=== PATIENT | female | born 1980 | race Caucasian/White ===

== ENCOUNTER → 2017-01-20 | Outpatient (CLI) | payer BC | LOC: RAD 10:28 | DX: G43.709 Chronic migraine without aura, not intractable, without status migrainosus (principal) ==

== ENCOUNTER → 2018-04-14 | Outpatient (CLI) | payer BC ==
[2018-04-14 10:04] LABS: EOS # 0.2 (0.04-0.40); EOS % 1.8 % (1.0-5.0); HEMATOCRIT 37.1 % (37.0-47.0); HEMOGLOBIN 12.5 g/dL (12.5-16.0); LYMPH# 2.7 (1.50-4.00); MEAN CELL VOLUME 91 fl (78-100); MEAN CORPUSCULAR HEMOGLOBIN 31 pg (27-31); MEAN CORPUSCULAR HGB CONC 34 g/dL (33-37); MEAN PLATELET VOLUME 10.1 fl (7.4-10.4); MONO # 0.8 (0.20-0.80); NEU # 6.3 (1.40-6.50); PLATELET COUNT 258 K/mm3 (130-400); RED BLOOD COUNT 4.06 M/mm3 (4.10-5.30); RED CELL DISTRIBUTION WIDTH 13.1 % (11.5-14.5); WHITE BLOOD COUNT 10.1 K/mm3 (4.8-10.8)
[2018-04-14 10:22] LABS: ALBUMIN 4.7 g/dL (3.5-5.0); CALCIUM 9.1 mg/dL (8.4-10.2); POTASSIUM 4.3 mmol/L (3.6-5.0); TOTAL BILIRUBIN 0.7 mg/dL (0.2-1.3); TOTAL PROTEIN 7.9 g/dL (6.3-8.2)
== END ==
LOC: LAB 09:51
PROVIDERS: Physician Assistant
DX: E16.2 Hypoglycemia, unspecified (principal); N92.0 Excessive and frequent menstruation with regular cycle; J06.9 Acute upper respiratory infection, unspecified; Z86.69 Personal history of other diseases of the nervous system and sense organs

== ENCOUNTER → 2019-11-22 | Outpatient (CLI) | payer BC ==
[2019-11-22 08:55] LABS: EOS # 0.2 (0.04-0.40); EOS % 2.5 % (1.0-5.0); HEMOGLOBIN 12.3 g/dL (12.5-16.0); LYMPH# 3.9 (1.50-4.00); MEAN CELL VOLUME 92 fl (78-100); MEAN CORPUSCULAR HEMOGLOBIN 31 pg (27-31); MEAN CORPUSCULAR HGB CONC 33 g/dL (33-37); MEAN PLATELET VOLUME 10.7 fl (7.4-10.4); MONO # 0.6 (0.20-0.80); NEU # 3.3 (1.40-6.50); PLATELET COUNT 254 K/mm3 (130-400); RED BLOOD COUNT 4.01 M/mm3 (4.10-5.30); RED CELL DISTRIBUTION WIDTH 12.2 % (11.5-14.5); WHITE BLOOD COUNT 8.1 K/mm3 (4.8-10.8)
[2019-11-22 09:01] LABS: POTASSIUM 4.1 mmol/L (3.5-5.1)
[2019-11-22 09:03] LABS: CALCIUM 8.7 mg/dL (8.3-10.5)
[2019-11-22 09:04] LABS: TOTAL PROTEIN 7.5 g/dL (6.4-8.3)
[2019-11-22 09:06] LABS: TOTAL BILIRUBIN 0.5 mg/dL (0.2-1.2)
[2019-11-22 10:02] LABS: ERYTHROCYTE SEDIMENTATION RATE 8 mm/hr (0-20)
== END ==
LOC: LAB 08:14
PROVIDERS: Physician Assistant
DX: K50.90 Crohn's disease, unspecified, without complications (principal); R60.0 Localized edema; L65.9 Nonscarring hair loss, unspecified; J30.1 Allergic rhinitis due to pollen; R21 Rash and other nonspecific skin eruption

== ENCOUNTER → 2020-04-16 | Outpatient (CLI) | payer BC | LOC: LAB 07:29 | DX: N39.0 Urinary tract infection, site not specified (principal) ==

== ENCOUNTER → 2020-07-05 | Outpatient (CLI) | payer BC ==
[2020-07-05 08:42] LABS: HEMATOCRIT 35.6 % (37.0-47.0); HEMOGLOBIN 11.6 g/dL (12.5-16.0); MEAN PLATELET VOLUME 10.4 fl (7.4-10.4); RED BLOOD COUNT 3.81 M/mm3 (4.10-5.30); RED CELL DISTRIBUTION WIDTH 12.1 % (11.5-14.5); WHITE BLOOD COUNT 6.5 K/mm3 (4.8-10.8)
[2020-07-05 08:55] LABS: POTASSIUM 4.2 mmol/L (3.5-5.1)
[2020-07-05 08:56] LABS: ALBUMIN 3.8 g/dL (3.5-5.0)
[2020-07-05 08:57] LABS: CALCIUM 8.4 mg/dL (8.3-10.5)
[2020-07-05 09:00] LABS: TOTAL BILIRUBIN 0.5 mg/dL (0.2-1.2)
== END ==
LOC: LAB 08:20
PROVIDERS: Physician Assistant
DX: L65.9 Nonscarring hair loss, unspecified (principal)

== ENCOUNTER 2020-07-19 11:25 | Emergency (ER) | payer BC ==
[2020-07-19] MEDS ORDERED: SUMATRIPTAN SU100 MG PO (11:39)
[2020-07-19 12:00] LABS: HEMATOCRIT 34.5 % (37.0-47.0); HEMOGLOBIN 11.9 g/dL (12.5-16.0); MEAN CELL VOLUME 90 fl (78-100); MEAN CORPUSCULAR HEMOGLOBIN 31 pg (27-31); MEAN CORPUSCULAR HGB CONC 35 g/dL (33-37); PLATELET COUNT 261 K/mm3 (130-400); RED BLOOD COUNT 3.82 M/mm3 (4.10-5.30); RED CELL DISTRIBUTION WIDTH 12.1 % (11.5-14.5); WHITE BLOOD COUNT 10.4 K/mm3 (4.8-10.8)
[2020-07-19 12:06] LABS: POTASSIUM 3.6 mmol/L (3.5-5.1)
[2020-07-19 12:07] LABS: CALCIUM 8.6 mg/dL (8.3-10.5)
[2020-07-19 12:08] LABS: TOTAL PROTEIN 7.2 g/dL (6.4-8.3)
[2020-07-19 12:10] LABS: TOTAL BILIRUBIN 0.5 mg/dL (0.2-1.2)
[2020-07-19 12:45] LABS: LYMPHOCYTE 15 % (20-51); MONOCYTE 1 % (3-10); NEUTROPHILS 84 % (42-75)
[2020-07-19] MEDS ORDERED: ZOFRAN ODT4 MG PO (12:57)
[2020-07-19 13:27] VITALS: BP 100/68
== END 2020-07-19 13:27 | disposition home or self-care (01) ==
LOC: ED 11:25
PROVIDERS: Physician Assistant
DX: G43.909 Migraine, unspecified, not intractable, without status migrainosus (principal); Z87.891 Personal history of nicotine dependence
CPT/HCPCS: J1200; J1885; J2550; J7030

== ENCOUNTER → 2020-10-26 | Outpatient (CLI) | payer BC ==
[~2020-10-26] MED LIST: SUMATRIPTAN SU100 MG PO; ZOFRAN ODT4 MG PO
== END ==
LOC: LAB 14:47
DX: U07.1 COVID-19 (principal)

== ENCOUNTER → 2021-05-30 | Outpatient (CLI) | payer BC | LOC: LAB 14:04 | DX: Z20.822 Contact with and (suspected) exposure to COVID-19 (principal) ==

== ENCOUNTER → 2021-11-26 | Outpatient (CLI) | payer BC ==
[2021-11-26 10:31] LABS: URINE APPEARANCE CLOUDY; URINE BILIRUBIN NEGATIVE (NEGATIVE); URINE BLOOD NEGATIVE (NEGATIVE); URINE COLOR ORANGE; URINE GLUCOSE NEGATIVE (NEGATIVE); URINE KETONE NEGATIVE (NEGATIVE); URINE LEUKOCYTE ESTERASE NEGATIVE (NEGATIVE); URINE NITRATE NEGATIVE (NEGATIVE); URINE PROTEIN(semi-quant) NEGATIVE (NEGATIVE); URINE UROBILINOGEN NORMAL (NORMAL)
[2021-11-26 12:05] LABS: CLUE CELLS NOT OBSERVED (Not Observd)
== END ==
LOC: LAB 09:38
PROVIDERS: Nurse Practitioner Family
DX: L29.3 Anogenital pruritus, unspecified (principal); N94.10 Unspecified dyspareunia
CPT/HCPCS: Q0111

== ENCOUNTER → 2021-12-09 | Outpatient (CLI) | payer BC | LOC: LAB 08:54 | DX: Z20.822 Contact with and (suspected) exposure to COVID-19 (principal) ==

== ENCOUNTER → 2022-04-23 | Outpatient (CLI) | payer BC ==
[~2022-04-23] VITALS: Ht 170.2 cm; Wt 72.7 kg
[2022-04-23 10:00] VITALS: BP 105/67
--- NOTE | 2022-04-23 10:05 | NUR ---
PT REPORTS ZOFRAN WAS TAKEN YESTERDAY AT HOME WITH NO RELIEF. REQUESTS DIFFERENT MEDICATION. THIS NURSE NOTIFIED SUHAS WISE APRN. NEW ORDERS OBTANIED FOR PHENERGAN 25MG IV NOW.
[2022-04-23 10:19] VITALS: BP 105/67
[2022-04-23 10:37] LABS: HEMATOCRIT 36.6 % (37.0-47.0); HEMOGLOBIN 12.7 g/dL (12.5-16.0); MEAN PLATELET VOLUME 10.5 fl (7.4-10.4); RED BLOOD COUNT 4.03 M/mm3 (4.10-5.30); RED CELL DISTRIBUTION WIDTH 11.7 % (11.5-14.5); WHITE BLOOD COUNT 6.4 K/mm3 (4.8-10.8)
[2022-04-23 10:41] LABS: ALBUMIN 4.2 g/dL (3.5-5.0); POTASSIUM 3.6 mmol/L (3.5-5.1)
[2022-04-23 10:43] LABS: TOTAL PROTEIN 7.4 g/dL (6.4-8.3)
[2022-04-23 10:45] LABS: TOTAL BILIRUBIN 0.5 mg/dL (0.2-1.2)
[2022-04-23 11:45] VITALS: BP 102/58
== END ==
LOC: AMSURD 09:43
PROVIDERS: Nurse Practitioner
DX: R11.2 Nausea with vomiting, unspecified (principal); R51.9 Headache, unspecified
CPT/HCPCS: J1885; J2550; J7030

== ENCOUNTER → 2023-02-24 | Outpatient (CLI) | payer BC | LOC: RAD 18:53 | DX: R05.9 Cough, unspecified (principal) ==

== ENCOUNTER → 2023-07-22 | Outpatient (CLI) | payer BC ==
[2023-07-22 09:49] LABS: BASO # 0.03 K/mm3 (0.02-0.10); EOS # 0.12 K/mm3 (0.04-0.40); EOS % 1.4 % (1.0-5.0); HEMATOCRIT 38.7 % (37.0-47.0); HEMOGLOBIN 13.2 g/dL (12.5-16.0); LYMPH# 2.89 K/mm3 (1.50-4.00); MEAN CELL VOLUME 92 fl (78-100); MEAN CORPUSCULAR HEMOGLOBIN 31 pg (27-31); MEAN CORPUSCULAR HGB CONC 34 g/dL (33-37); MEAN PLATELET VOLUME 9.9 fl (7.4-10.4); MONO # 0.57 K/mm3 (0.20-0.80); NEU # 4.66 K/mm3 (1.40-6.50); PLATELET COUNT 285 K/mm3 (130-400); WHITE BLOOD COUNT 8.3 K/mm3 (4.8-10.8)
[2023-07-22 09:54] LABS: ALBUMIN 4.2 g/dL (3.5-5.0)
[2023-07-22 09:55] LABS: CALCIUM 9.6 mg/dL (8.3-10.5)
[2023-07-22 09:56] LABS: TOTAL PROTEIN 7.4 g/dL (6.4-8.3)
[2023-07-22 09:58] LABS: TOTAL BILIRUBIN 0.4 mg/dL (0.2-1.2)
== END ==
LOC: LAB 09:26
PROVIDERS: Physician Assistant
DX: Z13.29 Encounter for screening for other suspected endocrine disorder (principal); K90.9 Intestinal malabsorption, unspecified; E78.5 Hyperlipidemia, unspecified; R59.0 Localized enlarged lymph nodes

== ENCOUNTER → 2023-10-21 | Outpatient (CLI) | payer BC | LOC: LAB 09:40 | DX: N89.8 Other specified noninflammatory disorders of vagina (principal) ==

== ENCOUNTER → 2024-05-04 | Outpatient (CLI) | payer BC | LOC: MAMMO 08:00 | DX: Z12.31 Encounter for screening mammogram for malignant neoplasm of breast (principal) ==

== ENCOUNTER → 2024-06-15 | Outpatient (CLI) | payer BC ==
[2024-06-15 08:51] LABS: BASO # 0.02 K/mm3 (0.02-0.10); EOS # 0.17 K/mm3 (0.04-0.40); EOS % 1.9 % (1.0-5.0); HEMATOCRIT 37.9 % (37.0-47.0); HEMOGLOBIN 12.7 g/dL (12.5-16.0); LYMPH# 3.35 K/mm3 (1.50-4.00); MEAN CELL VOLUME 93 fl (78-100); MEAN CORPUSCULAR HEMOGLOBIN 31 pg (27-31); MEAN CORPUSCULAR HGB CONC 34 g/dL (33-37); MEAN PLATELET VOLUME 9.8 fl (7.4-10.4); MONO # 0.66 K/mm3 (0.20-0.80); NEU # 4.67 K/mm3 (1.40-6.50); PLATELET COUNT 300 K/mm3 (130-400); RED BLOOD COUNT 4.09 M/mm3 (4.10-5.30); RED CELL DISTRIBUTION WIDTH 12.2 % (11.5-14.5); WHITE BLOOD COUNT 8.9 K/mm3 (4.8-10.8)
[2024-06-15 08:59] LABS: ALBUMIN 4.1 g/dL (3.5-5.0)
[2024-06-15 09:00] LABS: CALCIUM 9.2 mg/dL (8.3-10.5)
[2024-06-15 09:01] LABS: TOTAL PROTEIN 7.6 g/dL (6.4-8.3)
[2024-06-15 09:03] LABS: TOTAL BILIRUBIN 0.5 mg/dL (0.2-1.2)
== END ==
LOC: LAB 08:33
PROVIDERS: Physician Assistant
DX: Z01.89 Encounter for other specified special examinations (principal)

== ENCOUNTER 2024-07-16 09:00 | Emergency (ER) | payer BC ==
[~2024-07-16] VITALS: Ht 162.6 cm; Wt 81.8 kg
[2024-07-16] MEDS ORDERED: NS 1,000 ML IV SCH (09:30)
[2024-07-16 09:36] LABS: HEMATOCRIT 36.1 % (37.0-47.0); HEMOGLOBIN 12.6 g/dL (12.5-16.0); MEAN CELL VOLUME 91 fl (78-100); MEAN CORPUSCULAR HEMOGLOBIN 32 pg (27-31); MEAN CORPUSCULAR HGB CONC 35 g/dL (33-37); MEAN PLATELET VOLUME 10.3 fl (7.4-10.4); PLATELET COUNT 233 K/mm3 (130-400); RED BLOOD COUNT 3.97 M/mm3 (4.10-5.30); RED CELL DISTRIBUTION WIDTH 12.6 % (11.5-14.5); WHITE BLOOD COUNT 6.1 K/mm3 (4.8-10.8)
[2024-07-16 10:02] LABS: BAND 5 % (0-10); LYMPHOCYTE 4 % (20-51); MONOCYTE 7 % (3-10); NEUTROPHILS 82 % (42-75)
[2024-07-16 10:33] VITALS: BP 122/75
[2024-07-16] MEDS ORDERED: PROMETHEGAN25 MG RC (10:42)
== END 2024-07-16 10:36 | disposition home or self-care (01) ==
LOC: ED 09:00
PROVIDERS: Family Medicine
DX: J10.1 Influenza due to other identified influenza virus with other respiratory manifestations (principal)
CPT/HCPCS: J7030